=== PATIENT | male | born 1965 | race Caucasian/White ===

== ENCOUNTER 2019-11-09 11:55 | Inpatient (IN) | payer OTHER ==
[~2019-11-09] VITALS: Ht 182.9 cm; Wt 103.9 kg
[2019-11-09 12:44] LABS: PLATELET COUNT 339 x10^3mcL (130-400)
[2019-11-09 13:01] LABS: CALCIUM 8.6 mg/dL (8.5-10.1); CARBON DIOXIDE 27.9 mmol/L (21-32); CHLORIDE SERUM 102 mmol/L (98-107); CREATININE SERUM 0.8 mg/dL (0.7-1.3); GFR1 > 60 mL/min; GLUCOSE SERUM 242 mg/dL (74-106); POTASSIUM SERUM 3.8 mmol/L (3.5-5.1); SODIUM SERUM 136 mmol/L (136-145)
[2019-11-09 13:15] LABS: FREE T4 1.31 ng/dL (0.76-1.46); FREE THYROXINE INDEX 2.5 ug/dL (1.4-4.5); T4(THYROXINE) 6.9 ug/dL (4.7-13.3)
[2019-11-09 13:21] LABS: ERYTHROCYTE SED RATE 27 mm/hr (0-20)
[2019-11-09 13:23] LABS: ALBUMIN 3.6 g/dL (3.4-5.0); ALKALINE PHOSPHATASE 128 U/L (46-116); ALT/SGPT 26 U/L (16-63); AST/SGOT 7 U/L (15-37); BILIRUBIN TOTAL 0.53 mg/dL (0.20-1.00); C REACTIVE PROTEIN 2.2 mg/dL (<=0.9); TOTAL PROTEIN, SERUM 7.4 g/dL (6.4-8.2)
[2019-11-09 14:42] LABS: microscopic required? NO
[2019-11-09 14:57] LABS: UA SPECIFIC GRAVITY 1.025 (1.005-1.035); urine erythrocyte NEGATIVE (NEGATIVE)
[2019-11-09 16:04] LABS: AMPHETAMINE QUAL UR NONE DETECTED (See below)
[2019-11-09 16:13] LABS: CK-MB 1.7 ng/mL (0-3.6)
[2019-11-09 16:17] VITALS: BP 145/74
[2019-11-09 16:24] VITALS: Ht 182.9 cm; Wt 103.9 kg
[2019-11-09 18:36] LABS: CHOLESTEROL/HDL RATIO 6.9
[2019-11-09 21:04] VITALS: BP 122/68
[2019-11-10 05:46] VITALS: BP 143/78
[2019-11-10 08:37] VITALS: BP 118/68
[2019-11-10 12:40] VITALS: BP 106/61
[2019-11-10 13:30] LABS: BASOPHIL % 0.4 % (0-2); PLATELET COUNT 323 x10^3mcL (130-400); RED CELL DISTRIBUTION WIDTH 13.9 % (11.5-14.5)
[2019-11-10 13:32] LABS: CALCIUM 8.1 mg/dL (8.5-10.1); CARBON DIOXIDE 29.5 mmol/L (21-32); CHLORIDE SERUM 102 mmol/L (98-107); CREATININE SERUM 0.7 mg/dL (0.7-1.3); GFR1 > 60 mL/min; GLUCOSE SERUM 129 mg/dL (74-106); SODIUM SERUM 139 mmol/L (136-145)
[2019-11-10 16:35] VITALS: BP 134/67
[2019-11-10 20:01] VITALS: BP 115/64
[2019-11-11 05:10] VITALS: BP 123/68
[2019-11-11 07:59] LABS: CALCIUM 8.2 mg/dL (8.5-10.1); CARBON DIOXIDE 27.4 mmol/L (21-32); CHLORIDE SERUM 104 mmol/L (98-107); CREATININE SERUM 0.7 mg/dL (0.7-1.3); GFR1 > 60 mL/min; GLUCOSE SERUM 108 mg/dL (74-106); MAGNESIUM 1.9 mg/dL (1.8-2.4); PHOSPHOROUS 3.7 mg/dL (2.5-4.9); SODIUM SERUM 141 mmol/L (136-145)
[2019-11-11 08:05] LABS: BASOPHIL % 0.4 % (0-2); PLATELET COUNT 311 x10^3mcL (130-400); RED CELL DISTRIBUTION WIDTH 13.8 % (11.5-14.5)
[2019-11-11 09:45] VITALS: BP 141/75
[2019-11-11 10:02] LABS: T3 TOTAL 1.05 ng/mL
[2019-11-11 12:14] VITALS: BP 137/72
[2019-11-11 16:31] VITALS: BP 117/72
[2019-11-11 20:27] VITALS: BP 124/70
[2019-11-12 05:27] VITALS: BP 116/68
[2019-11-12 07:17] LABS: BASOPHIL % 0.3 % (0-2); PLATELET COUNT 315 x10^3mcL (130-400); RED CELL DISTRIBUTION WIDTH 14.1 % (11.5-14.5)
[2019-11-12 08:21] LABS: CALCIUM 8.6 mg/dL (8.5-10.1); CARBON DIOXIDE 30.5 mmol/L (21-32); CHLORIDE SERUM 104 mmol/L (98-107); CREATININE SERUM 0.9 mg/dL (0.7-1.3); GFR1 > 60 mL/min; GLUCOSE SERUM 122 mg/dL (74-106); POTASSIUM SERUM 4.7 mmol/L (3.5-5.1); SODIUM SERUM 140 mmol/L (136-145)
[2019-11-12 09:00] VITALS: BP 130/66
[2019-11-12] MEDS ORDERED: BACTRIM DS1 TAB PO (11:46)
[2019-11-12] MEDS ORDERED: LAC PO (11:46)
[2019-11-12 14:06] VITALS: BP 130/66
== END 2019-11-12 14:37 | disposition home or self-care (01) | DRG 305 ==
LOC: ED 11:55 → MU 13:39 → DU 15:23 → MU 15:45
PROVIDERS: Podiatrist Foot & Ankle Surgery; Specialist; ADMIT Family Medicine; ATTEND Family Medicine
PROC: 0Y6M0ZF Detachment at Right Foot, Partial 5th Ray, Open Approach (ICD-10-PCS; principal; 2019-11-10 08:30)
DX: E11.69 Type 2 diabetes mellitus with other specified complication (principal); M86.8X7 Other osteomyelitis, ankle and foot; E11.42 Type 2 diabetes mellitus with diabetic polyneuropathy; E11.621 Type 2 diabetes mellitus with foot ulcer; E11.9 Type 2 diabetes mellitus without complications; F17.210 Nicotine dependence, cigarettes, uncomplicated; E78.5 Hyperlipidemia, unspecified; Z91.19 Patient's noncompliance with other medical treatment and regimen
CPT/HCPCS: 36600; 82962; 84439; G0378; J2543; J3010; J3370; J3490; J7040; J7050; Q0092